=== PATIENT | male | born 1970 | race Caucasian/White ===

== ENCOUNTER 2021-01-06 13:25 | Observation (INO) ==
[2021-01-06 16:03] LABS: Basophils % 0.2 %; Hemoglobin 15.1 g/dL (12.9-16.9); Immature Granulocytes % 0.5 % (0-4); Lymphocytes # 0.6 K/mcL (0.6-4.6); Lymphocytes % 9.9 %; Mean Corpuscular HGB Conc 34.3 g/dL (31.6-35.5); Mean Corpuscular Hemoglobin 30.5 pg (28.0-33.3); Mean Corpuscular Volume 88.9 fL (83.0-100.0); Mean Platelet Volume 11.9 fL (9.4-12.4); Monocytes # 0.4 K/mcL (0.0-1.3); Monocytes % 6.7 %; Platelet Count 142 K/mcL (140-400); Red Blood Count 4.95 M/mcL (4.19-5.50); Red Cell Distribution Width 12.3 % (11.5-14.5); Segmented Neutrophils % 82.7 %; White Blood Count 6.1 K/mcL (4.3-11.1)
[2021-01-06 16:27] LABS: BUN/Creatinine Ratio 11 (6-26); Blood Urea Nitrogen 11 mg/dL (6-20); Calcium 8.8 mg/dL (8.6-10.3); Carbon Dioxide 27 mEq/L (23-29); Chloride 99 mEq/L (98-107); Glucose 109 mg/dL (70-105); Osmolality,Calculated 278 (280-300); Sodium 134 mEq/L (136-145); Troponin I < 0.03 ng/mL (< 0.04); eGFR For African Americans > 60 (> 60); eGFR For Non-African Americans > 60 (> 60)
[2021-01-06 18:56] LABS: INR 1.2; Prothrombin Time 14.1 Seconds (9.4-12.1)
[2021-01-06 18:58] LABS: Activated Partial Thrombo Time 36.1 Seconds (26.0-36.0)
[2021-01-06 18:59] LABS: C-Reactive Protein 160 mg/L (Less than 10); Lactate Dehydrogenase 228 Units/L (140-271); Magnesium 1.8 mg/dL (1.6-2.6); Phosphorous 2.7 mg/dL (2.7-4.5)
[2021-01-06 20:39] LABS: Ferritin > 1500 ng/mL (20-250)
[2021-01-06] MEDS ORDERED: Ipratropium 1 PUFF INHALER IH PRN (22:50)
[2021-01-06] MEDS ORDERED: Naloxone 0.4 MG/ML INJ IVP PRN (22:50)
[2021-01-06] MEDS ORDERED: Ondansetron 4 MG/2 ML VIAL IVP PRN (23:01)
[2021-01-06] MEDS ORDERED: Melatonin 3 MG TABLET PO PRN (23:01)
[2021-01-07 05:22] LABS: Hematocrit 40.6 % (37.5-50.1); Hemoglobin 14.2 g/dL (12.9-16.9); Immature Platelets 7.3 % (1.1-6.1); Mean Corpuscular Hemoglobin 30.7 pg (28.0-33.3); Mean Corpuscular Volume 87.7 fL (83.0-100.0); Mean Platelet Volume 11.5 fL (9.4-12.4); Red Blood Count 4.63 M/mcL (4.19-5.50); Red Cell Distribution Width 12.2 % (11.5-14.5); White Blood Count 3.3 K/mcL (4.3-11.1)
[2021-01-07 05:40] LABS: BUN/Creatinine Ratio 15 (6-26); Blood Urea Nitrogen 14 mg/dL (6-20); Calcium 8.7 mg/dL (8.6-10.3); Carbon Dioxide 23 mEq/L (23-29); Chloride 100 mEq/L (98-107); Glucose 144 mg/dL (70-105); Osmolality,Calculated 277 (280-300); Potassium 3.9 mEq/L (3.5-5.1); Sodium 132 mEq/L (136-145); eGFR For African Americans > 60 (> 60); eGFR For Non-African Americans > 60 (> 60)
[2021-01-07 05:42] LABS: C-Reactive Protein 132 mg/L (Less than 10); Lactate Dehydrogenase 227 Units/L (140-271)
[2021-01-07 06:00] LABS: Ferritin > 1500 ng/mL (20-250)
[2021-01-07 07:40] VITALS: BP 132/80; PULSE 68; TEMP 98; O2SAT 94
== END 2021-01-07 15:00 | disposition home or self-care (01) ==
LOC: 3ANU 13:25 → EMEROOARM 13:25 → SUATTDRO 01-07 02:45 → 3ANU 01-07 03:23
PROVIDERS: ADMIT Internal Medicine; ATTEND Internal Medicine